=== PATIENT | female | born 1995 | race African-American/Black ===

== ENCOUNTER 2018-09-03 16:30 | Observation (INO) | payer OTHER ==
[2015-04-10 10:46] VITALS: BP 130/90
[~2018-09-03 16:30] MED LIST: ALBU2.5V8 IH; HYDR-3164 PO; NAPR-514 PO; PNV1TABL25 PO
[2018-09-03 17:12] LABS: BILIRUBIN,URINE NEGATIVE (NEG); CLARITY,URINE CLEAR; COLOR,URINE YELLOW; NITRITE,URINE NEGATIVE (NEG); PROTEIN,URINE NEGATIVE (NEG-TRACE)
[2018-09-03 17:21] LABS: BACTERIA,URINE FEW /HPF (0-FEW); SQUAMOUS EPITHELIAL CELL,UR MOD /LPF; WBC,URINE RARE /HPF (0-4)
[2018-09-03] MEDS ORDERED: IBUPROFEN 400 MG TABLET. PO ONE (18:00)
== END 2018-09-03 19:30 | disposition home or self-care (01) ==
LOC: 3 SO LND 16:30
PROVIDERS: ADMIT Specialist; ATTEND Specialist
DX: O99.89 Other specified diseases and conditions complicating pregnancy, childbirth and the puerperium (principal); M54.5 Low back pain; O26.893 Other specified pregnancy related conditions, third trimester; R10.9 Unspecified abdominal pain; Z3A.30 30 weeks gestation of pregnancy
CPT/HCPCS: 81001; G0378; G0379